=== PATIENT | male | born 1960 | race African-American/Black ===

== ENCOUNTER 2018-07-26 07:33 | Emergency (ER) | payer SELFPAY ==
[2018-07-26] MEDS ORDERED: NORMAL SALINE 1000 ML 1,000 ML IV ONE (07:50)
[2018-07-26] MEDS ORDERED: FAMOTIDINE INJ/PF 20 MG/2 ML SDV IV ONE (08:25)
--- NOTE | 2018-07-26 08:25 | ER Document Report ---
ED General - General Chief Complaint: Abdominal Pain Stated Complaint: ABDOMINAL PAIN Time Seen by Provider: 07/26/18 07:49 TRAVEL OUTSIDE OF THE [place] IN LAST 30 DAYS: No - HPI Onset: Last week Onset/Duration: Gradual, Constant Quality of pain: Burning, Sharp Severity: Moderate Associated symptoms: None Exacerbated by: Food Relieved by: Denies Similar symptoms previously: Yes - H pylori Notes: Patient is a 57-year-old male that presents to the emergency department for chief complaint of epigastric abdominal pain. Patient states his pain started last week. It is sharp and radiates across both sides of his upper abdomen. It is worse with food. He has tried Zantac which did give him some relief. He states he has been taking milk of magnesia and is having normal soft bowel movements. Patient has history of H pylori and states this feels similar but that was many years ago. He denies any vomiting or diarrhea. He denies any fevers or chills. He does drink alcohol occasionally but has not had any recently. Past Medical History: Hypertension Past Surgical History: Negative Social History: Daily tobacco. Occasional alcohol. Denies drug use Family History: Reviewed and noncontributory for presenting illness Allergies: Reviewed, see documented allergy list. REVIEW OF SYSTEMS: CONSTITUTIONAL : No fever No chills No diaphoresis No recent illness EENT: No vision changes No congestion No sore throat CARDIOVASCULAR: No chest pain No palpitations RESPIRATORY: No shortness of breath No cough No difficulty breathing GASTROINTESTINAL: abdominal pain No nausea No vomiting No diarrhea GENITOURINARY: No dysuria No hematuria No difficulty urinating MUSCULOSKELETAL: No back pain No leg pain No arm pain SKIN: No rashes No lesions LYMPHATIC: No swollen, enlarged glands. NEUROLOGICAL: No lightheadedness No headache No weakness No paresthesias PSYCHIATRIC: No anxiety No depression PHYSICAL EXAMINATION: Vital signs reviewed, nursing noted reviewed. GENERAL: Well-appearing, well-nourished and in no acute distress. HEAD: Atraumatic, normocephalic. EYES: Eyes appear normal, extraocular movements intact, sclera anicteric, conjunctiva are normal. ENT: nares patent, oropharynx clear without exudates. Moist mucous membranes. NECK: Normal range of motion, supple without lymphadenopathy LUNGS: Breath sounds clear to auscultation bilaterally and equal. No wheezes rales or rhonchi. HEART: Regular rate and rhythm without murmurs ABDOMEN: Soft, mild epigastric tenderness, normoactive bowel sounds. No rebound , guarding, or rigidity. No masses appreciated. EXTREMITIES: Nontender, good range of motion, no pitting or edema. NEUROLOGICAL: No focal neurological deficits. Moves all extremities spontaneously Motor and sensory grossly intact on exam. PSYCH: Normal mood, normal affect. SKIN: Warm, Dry, normal turgor, no rashes or lesions noted on exposed skin - Related Data Allergies/Adverse Reactions: No Known Allergies Allergy (Verified 07/26/18 07:34) Past Medical History - Social History Smoking Status: Current Every Day Smoker Family History: Reviewed & Not Pertinent - Past Medical History Cardiac Medical History: Reports: Hx Hypertension Review of Systems - Review of Systems Notes: Dictated Physical Exam - Vital signs Vitals: Temp Pulse Resp BP Pulse Ox 97.7 F 102 H 16 97/70 L 100 07/26/18 07:39 07/26/18 07:39 07/26/18 07:39 07/26/18 07:39 07/26/18 07:39 - Notes Notes: Dictated Course - Re-evaluation Re-evalutation: 07/26/18 08:24 Vitals reviewed. Nursing notes reviewed. Patient given IV hydration and Pepcid for symptomatic management. 07/26/18 10:05 Patient reevaluated and states he is feeling much better. His abdominal pain has almost completely resolved. His abdominal exam is benign with no peritoneal signs. He has no pancreatitis. Normal kidney and liver function. There is no electrolyte derangements and he appears well-hydrated. Patient will be started on omeprazole for symptomatic management. He was counseled on dietary changes. He will follow with his primary care doctor for reevaluation. He will return for new or worsening symptoms. Laboratory 07/26/18 07/26/18 08:10 08:10 WBC 10.1 RBC 4.86 Hgb 14.1 Hct 41.1 MCV 85 MCH 28.9 MCHC 34.2 RDW 13.5 Plt Count 472 H Total Counted 100 Seg Neutrophils % Not Reportable Seg Neuts % (Manual) 74 Lymphocytes % Not Reportable Lymphocytes % (Manual) 12 L Monocytes % Not Reportable Monocytes % (Manual) 6 Eosinophils % Not Reportable Eosinophils % (Manual) 6 Basophils % Not Reportable Basophils % (Manual) 2 Absolute Neutrophils Not Reportable Abs Neuts (Manual) 7.5 Absolute Lymphocytes Not Reportable Abs Lymphs (Manual) 1.2 Absolute Monocytes Not Reportable Abs Monocytes (Manual) 0.6 Absolute Eosinophils Not Reportable Absolute Eos (Manual) 0.6 Absolute Basophils Not Reportable Abs Basophils (Manual) 0.2 Toxic Granulation SLIGHT Platelet Comment ADEQUATE Polychromasia SLIGHT Sodium 143.9 Potassium 4.3 Chloride 103 Carbon Dioxide 29 Anion Gap 12 BUN 15 Creatinine 0.89 Est GFR ( Amer) > 60 Est GFR (Non-Af Amer) > 60 Glucose 92 Calcium 10.2 Total Bilirubin 0.8 Direct Bilirubin 0.2 Neonat Total Bilirubin Not Reportable Neonat Direct Bilirubin Not Reportable Neonat Indirect Bili Not Reportable AST 32 ALT 39 Alkaline Phosphatase 161 H Total Protein 7.2 Albumin 3.8 Lipase 22.1 L - Vital Signs Vital signs: Temp Pulse Resp BP Pulse Ox 97.7 F 102 H 16 97/70 L 100 07/26/18 07:39 07/26/18 07:39 07/26/18 07:39 07/26/18 07:39 07/26/18 07:39 - Laboratory Result Diagrams: 07/26/18 08:10 07/26/18 08:10 Laboratory results interpreted by me: 07/26/18 07/26/18 08:10 08:10 Plt Count 472 H Lymphocytes % (Manual) 12 L Alkaline Phosphatase 161 H Lipase 22.1 L Discharge - Discharge Clinical Impression: Epigastric abdominal pain Condition: Stable Disposition: HOME, SELF-CARE Instructions: Abdominal Pain ([facility]) Additional Instructions: Please return to the emergency department if you have any worsening, or concern of your symptoms. Please return to the emergency department if you develop chest pain, difficulty breathing, severe abdominal pain, or ongoing vomiting. Please follow-up with your primary care physician in 2-3 days and any other recommended physicians. If prescribed, take all medications as directed. If you have any questions or concerns do not hesitate to return the emergency department for evaluation. [] Prescriptions: Omeprazole 40 mg PO DAILY #30 capsule.
[2018-07-26 08:37] LABS: HEMATOCRIT 41.1 % (37.9-51.0); HEMOGLOBIN 14.1 g/dL (13.5-17.0); MEAN CORPUSCULAR HEMOGLOBIN 28.9 pg (27.0-33.4); MEAN CORPUSCULAR HGB CONC 34.2 g/dL (32.0-36.0); MEAN CORPUSCULAR VOLUME 85 fl (80-97); PLATELET COUNT 472 10^3/uL (150-450); RED BLOOD COUNT 4.86 10^6/uL (4.35-5.55); RED CELL DISTRIBUTION WIDTH 13.5 % (11.5-14.0); WHITE BLOOD COUNT 10.1 10^3/uL (4.0-10.5)
[2018-07-26 08:57] LABS: ALANINE AMINOTRANSFERASE 39 U/L (21-72); ALBUMIN 3.8 g/dL (3.5-5.0); ALKALINE PHOSPHATASE 161 U/L (38-126); ANION GAP 12 (5-19); ASPARTATE AMINO TRANSFERASE 32 U/L (17-59); BILIRUBIN,DIRECT 0.2 mg/dL (0.0-0.4); BILIRUBIN,TOTAL 0.8 mg/dL (0.2-1.3); BLOOD UREA NITROGEN 15 mg/dL (7-20); CALCIUM 10.2 mg/dL (8.4-10.2); CARBON DIOXIDE 29 mmol/L (22-30); CHLORIDE 103 mmol/L (98-107); GLUCOSE 92 mg/dL (75-110); LIPASE 22.1 U/L (23-300); POTASSIUM 4.3 mmol/L (3.6-5.0); SODIUM 143.9 mmol/L (137-145); TOTAL PROTEIN 7.2 g/dL (6.3-8.2)
[2018-07-26 09:12] LABS: ABSOLUTE LYMPHOCYTES# (MANUAL) 1.2 10^3/uL (0.5-4.7); ABSOLUTE MONOCYTES # (MANUAL) 0.6 10^3/uL (0.1-1.4); ABSOLUTE NEUTROPHILS# (MANUAL) 7.5 10^3/uL (1.7-8.2); BASOPHILS % (MANUAL) 2 % (0-2); EOSINOPHILS % (MANUAL) 6 % (0-6); LYMPHOCYTES % (MANUAL) 12 % (13-45); MONOCYTES % (MANUAL) 6 % (3-13); PLATELET COMMENT ADEQUATE; POLYCHROMASIA SLIGHT; SEGMENTED NEUTROPHILS % (MAN) 74 % (42-78); TOTAL CELLS COUNTED 100; TOXIC GRANULATION SLIGHT
[2018-07-26 10:30] VITALS: BP 145/92
== END 2018-07-26 10:32 | disposition home or self-care (01) ==
LOC: ER 07:33
DX: R10.13 Epigastric pain (principal); I10 Essential (primary) hypertension; F17.200 Nicotine dependence, unspecified, uncomplicated
CPT/HCPCS: 99284; 96361; 96374; 36415; 83690; 85025; 80053; J7030; S0028

== ENCOUNTER 2018-07-31 12:21 | Emergency (ER) | payer SELFPAY ==
[2018-07-31] MEDS ORDERED: NORMAL SALINE 1000 ML 1,000 ML IV ONE ×2 (12:50→16:40)
--- NOTE | 2018-07-31 13:06 | ER Document Report ---
ED Medical Screen (RME) - General Chief Complaint: Abdominal Pain >50 Stated Complaint: ABDOMINAL PAIN Time Seen by Provider: 07/31/18 12:45 Notes: 57-year-old male patient comes emergency room complaining of nausea and abdominal pain. He was seen here on 07/26/2018 and had essentially negative workup and was discharged with recommendations to take Prilosec 40 mg daily. He continues with same symptoms. Today he is found to have a blood pressure of 70/44. His radial pulses are barely palpable. 5 days ago his blood pressure was 145/92. We did confirm these pressures with automatic and manual cuff. He does report that he feels lightheaded if he stands up too quickly and this started probably the day after he was discharged on 07/26/2018. His conjunctiva does look a little pale as do his nailbeds. He was expeditiously moved to a room in the main ED for workup. I have greeted and performed a rapid initial assessment of this patient. A comprehensive ED assessment and evaluation of the patient, analysis of test results and completion of the medical decision making process will be conducted by additional ED providers. TRAVEL OUTSIDE OF THE [place] IN LAST 30 DAYS: No - Related Data Allergies/Adverse Reactions: No Known Allergies Allergy (Verified 07/31/18 12:30) Past Medical History - Past Medical History Cardiac Medical History: Reports: Hx Hypertension Renal/ Medical History: Denies: Hx Peritoneal Dialysis Physical Exam - Vital signs Vitals: Temp Pulse Resp BP Pulse Ox 98.5 F 107 H 16 70/44 L 100 07/31/18 12:36 07/31/18 12:36 07/31/18 12:36 07/31/18 12:36 07/31/18 12:36 Course - Vital Signs Vital signs: Temp Pulse Resp BP Pulse Ox 98.5 F 107 H 16 70/44 L 100 07/31/18 12:36 07/31/18 12:36 07/31/18 12:36 07/31/18 12:36 07/31/18 12:36
[2018-07-31 13:34] LABS: ABSOLUTE BASOPHILS # (AUTO) 0.1 10^3/uL (0.0-0.2); ABSOLUTE EOSINOPHILS # (AUTO) 0.3 10^3/uL (0.0-0.6); ABSOLUTE LYMPHOCYTES (AUTO) 1.5 10^3/uL (0.5-4.7); ABSOLUTE MONOCYTES (AUTO) 0.9 10^3/uL (0.1-1.4); ABSOLUTE NEUT (AUTO) 9.3 10^3/uL (1.7-8.2); BASOPHILS % (AUTO) 0.9 % (0-2); EOSINOPHILS % (AUTO) 2.8 % (0-6); HEMATOCRIT 40.5 % (37.9-51.0); HEMOGLOBIN 13.7 g/dL (13.5-17.0); LYMPHOCYTES % (AUTO) 12.4 % (13-45); MEAN CORPUSCULAR HEMOGLOBIN 28.3 pg (27.0-33.4); MEAN CORPUSCULAR HGB CONC 33.9 g/dL (32.0-36.0); MEAN CORPUSCULAR VOLUME 83 fl (80-97); MONOCYTES % (AUTO) 7.7 % (3-13); PLATELET COUNT 440 10^3/uL (150-450); RED BLOOD COUNT 4.85 10^6/uL (4.35-5.55); RED CELL DISTRIBUTION WIDTH 12.7 % (11.5-14.0); SEGMENTED NEUTROPHILS % (AUTO) 76.2 % (42-78); TOTAL CELLS COUNTED % (AUTO) 100 %; WHITE BLOOD COUNT 12.2 10^3/uL (4.0-10.5)
[2018-07-31] MEDS ORDERED: DICYCLOMINE HCL INJ 20 MG/2 ML AMPULE IM STA (13:50)
[2018-07-31] MEDS ORDERED: PANTOPRAZOLE SODIUM 40 MG VIAL IV ONE (13:52)
[2018-07-31 13:56] LABS: ALANINE AMINOTRANSFERASE 29 U/L (21-72); ALKALINE PHOSPHATASE 148 U/L (38-126); ANION GAP 15 (5-19); ASPARTATE AMINO TRANSFERASE 33 U/L (17-59); BILIRUBIN,DIRECT 0.4 mg/dL (0.0-0.4); BILIRUBIN,TOTAL 0.8 mg/dL (0.2-1.3); BLOOD UREA NITROGEN 19 mg/dL (7-20); CARBON DIOXIDE 25 mmol/L (22-30); CHLORIDE 101 mmol/L (98-107); GLUCOSE 96 mg/dL (75-110); LIPASE 20.2 U/L (23-300); POTASSIUM 4.6 mmol/L (3.6-5.0); SODIUM 140.8 mmol/L (137-145); TOTAL PROTEIN 7.2 g/dL (6.3-8.2)
[2018-07-31 15:30] LABS: APPEARANCE,URINE SLIGHTLY-CLOUDY; BILIRUBIN,URINE NEGATIVE (NEGATIVE); COLOR,URINE YELLOW; GLUCOSE, URINE NEGATIVE (NEGATIVE); KETONES,URINE 20 mg/dL (NEGATIVE); LEUKOCYTE ESTERASE,URINE NEGATIVE (NEGATIVE); NITRITE,URINE NEGATIVE (NEGATIVE); PROTEIN,URINE NEGATIVE (NEGATIVE); URINE SPECIFIC GRAVITY 1.025
--- NOTE | 2018-07-31 16:41 | RADIOLOGY REPORT (SQ) ---
EXAM DESCRIPTION: ACUTE ABDOMEN SERIES COMPLETED DATE/TIME: 07/31/2018 4:29 pm REASON FOR STUDY: abdominal pain COMPARISON: None. NUMBER OF VIEWS: Three views. TECHNIQUE: Frontal chest, supine abdomen and upright/decubitus abdomen radiographic images acquired. LIMITATIONS: None. FINDINGS: CHEST: Lungs clear of infiltrates. FREE AIR: None. No abnormal gas collections. BOWEL GAS PATTERN: Nonobstructive pattern. No dilated loops. A few small air-fluid levels on the upr ight image. Two ingested pills in the bowel in the left lower quadrant of the abdomen. CALCIFICATIONS: No suspicious calcifications. HARDWARE: None in the abdomen. SOFT TISSUES: No gross mass or suggestion of organomegaly. BONES: No acute fracture. No worrisome bone lesions. OTHER: No other significant finding. IMPRESSION: 1. No acute pulmonary findings. 2. A few nonspecific air-fluid levels on the upright image, may be on the basis of gastroenteritis, early ileus. TECHNICAL DOCUMENTATION: JOB ID: [id number] [employer]- All Rights Reserved Reading location - IP/workstation name: [email or web address]
--- NOTE | 2018-07-31 17:02 | ER Document Report ---
ED GI/ <MARBELLADOREENSHANAE - Last Filed: 08/01/18 04:57> - General Mode of Arrival: Ambulatory Information source: Patient TRAVEL OUTSIDE OF THE [place] IN LAST 30 DAYS: No - HPI Patient complains to provider of: Abdominal pain Onset: Last week Timing/Duration: Gradual, Persistent, Worse Quality of pain: Cramping, Pressure, Throbbing Severity at maximum: Moderate Severity in ED: Moderate Pain Level: 3 Associated symptoms: Dizzy, Lightheaded, Nausea Exacerbated by: Supine, Standing Similar symptoms previously: Yes Recently seen / treated by doctor: Yes <BENITEZ COOPER - Last Filed: 08/07/18 08:55> - General Stated Complaint: ABDOMINAL PAIN Time Seen by Provider: 07/31/18 12:45 Notes: Patient is a 57-year-old male who comes emergency room for the second time since the seventh of the month with a complaint of abdominal pain. While he was out in triage it was noted that his blood pressure had dropped to 70/44 with a heart rate of 107. Patient was rushed to the back and put on the gurney and blood pressure cuff inflated any was 149/89. Further investigation shows that patient was seen on the all of his labs were normal so no radiologic studies were done. He had been complaining of constipation and a history of H. pylori and they put him on some omeprazole and he comes back to the ER complaining that is still not any better. Patient does state that he has always been a little dizzy when he goes to stand up. He currently is only being treated for hypertension with lisinopril. He is taking no other medications. 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 Lives with: Family Family History: Reviewed & Not Pertinent Patient has suicidal ideation: No Patient has homicidal ideation: No - Past Medical History Cardiac Medical History: Reports: Hx Hypertension Renal/ Medical History: Denies: Hx Peritoneal Dialysis <BENITEZ COOPER - Last Filed: 08/07/18 08:55> Review of Systems - Review of Systems Constitutional: Weakness EENT: No symptoms reported Cardiovascular: Lightheaded Respiratory: No symptoms reported Gastrointestinal: Abdomen distended, Abdominal pain Genitourinary: No symptoms reported Male Genitourinary: No symptoms reported Musculoskeletal: No symptoms reported Skin: No symptoms reported Hematologic/Lymphatic: No symptoms reported Neurological/Psychological: No symptoms reported -: Yes All other systems reviewed and negative <EDUBENITEZ Thurman - Last Filed: 08/07/18 08:55> Physical Exam <MARBELLADOREENSHANAE - Last Filed: 08/01/18 04:57> - Vital signs Interpretation: Hypotensive, Tachycardic <BENITEZ COOPER - Last Filed: 08/07/18 08:55> - Vital signs Vitals: Temp Pulse Resp BP Pulse Ox 98.5 F 107 H 16 70/44 L 100 07/31/18 12:36 07/31/18 12:36 07/31/18 12:36 07/31/18 12:36 07/31/18 12:36 - Notes Notes: PHYSICAL EXAMINATION: GENERAL: Patient is a 57-year-old male who is slightly anorexic appearance for age and height. He is a mail 510 weighs 60 kg. He is in no acute distress at this time. HEAD: Atraumatic, normocephalic. EYES: Pupils equal round and reactive to light, extraocular movements intact, sclera anicteric, conjunctiva are normal. ENT: Nares patent, oropharynx clear without exudates. Moist mucous membranes. NECK: Normal range of motion, supple without lymphadenopathy LUNGS: Breath sounds clear to auscultation bilaterally and equal. No wheezes rales or rhonchi. 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 There is no bulging there is no incarceration no strangulation. Patient has diffuse discomfort on palpation and percussion but no specific point tenderness. Patient does not exhibit a lot of peritoneal sign. But he is showing a large amount of discomfort on palpation. Patient displays no flank pain to percussion. He has no suprapubic tenderness. Denies any discharge from male genitalia. Musculoskeletal: Normal range of motion, no pitting or edema. No cyanosis. NEUROLOGIC Normal speech, normal gait. Normal sensory, motor exams PSYCH: Normal mood, normal affect. SKIN: Warm, Dry, normal turgor, no rashes or lesions noted. (BENITEZ COOPER) Course - Laboratory Result Diagrams: 07/31/18 13:13 07/31/18 13:13 <SHANAE ROSA - Last Filed: 08/01/18 04:57> - Laboratory Result Diagrams: 07/31/18 13:13 07/31/18 13:13 <BENITEZ COOPER - Last Filed: 08/07/18 08:55> - Re-evaluation Re-evalutation: 07/31/18 20:50 Radiologist called, reports SMV clot, no acute finding otherwise. I discussed with patient in detail. Recommendation was to start patient on heparin drip for SMV clot, admit for care. Potential transfer for vascular coverage. Patient refused. Patient requests dose of blood thinner and discharged home. I explained to patient that SMV clot could result in severe problems including lack of blood supply to the bowels, bowel necrosis, sepsis, . I explained that I do not know the source of his clot to this point and he could have additional clots which could also be life-threatening. Patient states that he understands this, however he states that he just wants a dose of blood thinner and he needs to go home, he refuses to tell me why he needs to go home. Patient has family waiting outside and he refuses to let me tell them about his diagnosis. He states that he wants to tell them himself, he states that he understands that he could have severe, bradycardia or even , he states that he still wants to be discharged. Patient is alert, conversational, appears to have good capacity for making decision, but I repeatedly advised against leaving. Patient states he would like to sign out AGAINST MEDICAL ADVICE. I discussed with Dr. Haro, she spoke to the patient as well and patient still refuses to stay. Given dose of Lovenox, patient signed out AGAINST MEDICAL ADVICE. (SHANAE ROSA) 07/31/18 17:03 Patient stated ER has been interesting. His blood pressure is bottomed out on him and his orthostatics have been positive for 2 rounds of 1000 mL's of fluid. At 1:30 PM this this afternoon patient had not received any fluids yet and his orthostatics were as follows supine 165/104 with a heart rate of 92 sitting blood pressure 119/96 with a heart rate 100 and standing up blood pressure 64/ 43 with a heart rate of 114 after 1 L of fluids patient's blood pressure laying down after patient received his first liter of fluids which was around 1601 his laying down blood pressure was 156/104 his heart rate was 72. Sitting up his blood pressure 141/109 and his heart rate was 86 and standing up his blood pressure was 83/62 with a heart rate of 86. So we had some gain with the blood pressure however patient's discomfort in his abdominal area though nonspecific was still concerning with an elevation in his white count up to 12. I discussed with patient the options of a CT and informed him that this is something that we probably need to do because he is not getting any better and with the pressures like they are want to make sure nothing is going on here read. So we are doing a CT of the abdomen and pelvis with IV contrast. Patient is such a skinny frail appearing male he is 510 and use at 60 kg I do not feel comfortable and hitting with 1/3 L of fluids when he is kidney functions do not appear to be dehydrated his oral mucosa was moist something in her may be something else going along with this. 07/31/18 17:06 07/31/18 19:13 Edu physician certified surgical tech/first assistant it is now 1912 I have just gone into the room with Mr. Mena and taken Mini and I have been the nighttime providers and introduced him to them. I have explained to them that we are waiting on the CT and will and we have gone through and studied his blood pressures and his orthostatics and they were given to take over and see where this will lead. Go to be leaving them waiting on the CT of the abdomen and pelvis with IV and oral contrast and results of that may determine where the patient stays or goes. ( BENITEZ COOPER) - Vital Signs Vital signs: Temp Pulse Resp BP Pulse Ox 98.1 F 78 15 141/90 H 99 07/31/18 21:22 07/31/18 21:22 07/31/18 21:22 07/31/18 21:22 07/31/18 21:22 - Laboratory Laboratory results interpreted by me: 07/31/18 07/31/18 07/31/18 13:13 13:13 15:06 WBC 12.2 H Lymphocytes % 12.4 L Absolute Neutrophils 9.3 H Alkaline Phosphatase 148 H Lipase 20.2 L Urine Ketones 20 H Urine Urobilinogen 2.0 H Discharge <SHANAE ROSA - Last Filed: 08/01/18 04:57> <BENITEZ COOPER - Last Filed: 08/07/18 08:55> - Discharge Clinical Impression: Mesenteric vein thrombosis Abdominal pain Qualifiers: Abdominal location: generalized Qualified Code(s): R10.84 - Generalized abdominal pain Disposition: AGAINST MEDICAL ADVICE Additional Instructions: You have been diagnosed with a blood clot in the a blood vessel in your abdomen. You are signing out AGAINST MEDICAL ADVICE. You have been informed that this is a life-threatening condition that could cause bowel, lead to bowel surgery, lead to . You have been given a dose of blood thinner and prescribed a blood thinner as well, however I strongly recommend that you immediately seek additional management in the hospital because of your critical condition. Prescriptions: Rivaroxaban [Xarelto 15 mg Tablet] 15 mg PO BID #42 tablet Referrals: ELIECER ESTRADA MD [Primary Care Provider] - Follow up as needed
--- NOTE | 2018-07-31 20:12 | EKG REPORT ---
SEVERITY:- BORDERLINE ECG - SINUS RHYTHM PROBABLE LEFT ATRIAL ABNORMALITY BORDERLINE T ABNORMALITIES, ANT-LAT LEADS : Confirmed by: Mitzi Jaramillo 31-Jul-2018 20:11:27
--- NOTE | 2018-07-31 20:41 | RADIOLOGY REPORT (SQ) ---
EXAM DESCRIPTION: CT ABD/PELVIS WITH IV ORAL COMPLETED DATE/TIME: 07/31/2018 7:59 pm REASON FOR STUDY: Abdominal pain COMPARISON: None. TECHNIQUE: CT scan of the abdomen and pelvis performed using helical scanning technique with dynamic intravenous contrast injection. No oral contrast. Images reviewed with lung, soft tissue, and bone windows. Reconstructed coronal and sagittal MPR images reviewed. Delayed images for evaluation of the urinary system also acquired. All images stored on PACS. All CT scanners at this facility use dose modulation, iterative reconstruction, and/or weight based d osing when appropriate to reduce radiation dose to as low as reasonably achievable (ALARA). [facility]: Dose Right [facility]: CareDose [facility]: Dose Right [facility]: Teradose 4D [facility]: [employer] CONTRAST TYPE AND DOSE: contrast/concentration: Isovue 350.00 mg/ml; Total Contrast Delivered: 67.0 ml; Total Saline Delivered: 65.0 ml RENAL FUNCTION: BUN 19 creatinine 0.8 RADIATION DOSE: CT Rad equipment meets quality standard of care and radiation dose reduction techniq ues were employed. CTDIvol: 4.9 - 5.4 mGy. DLP: 513 mGy-cm.. LIMITATIONS: None. FINDINGS: LOWER CHEST: No significant findings. No nodules or infiltrates. LIVER: There are broad areas of decreased attenuation in the liver with areas of normal attenuation. There are numerous fairly well-circumscribed low-density lesions in the liver SPLEEN: Normal size. No focal lesions. PANCREAS: No masses. No significant calcifications. No adjacent inflammation or peripancreatic fluid collections. Pancreatic duct not dilated. GALLBLADDER: No identified stones by CT criteria. No inflammatory changes to suggest cholecystitis. ADRENAL GLANDS: No significant masses or asymmetry. RIGHT KIDNEY AND URETER: No solid masses. No significant calcifications. No hydronephrosis or hyd roureter. LEFT KIDNEY AND URETER: No solid masses. No significant calcifications. No hydronephrosis or hydr oureter. AORTA AND VESSELS: The aorta is patent and there is no aneurysm or dissection. There appears to be t hrombosis of the superior mesenteric vein. Considerable mesenteric edema is present. RETROPERITONEUM: No retroperitoneal adenopathy, hemorrhage or masses. BOWEL AND PERITONEAL CAVITY: There is contrast in the right colon that extends to the proximal and mi d descending colon. APPENDIX: Not identified. PELVIS: No mass. No free fluid. Normal bladder. ABDOMINAL WALL: No masses. No hernias. BONES: No significant or acute findings. OTHER: No other significant finding. IMPRESSION: 1. Focal fatty infiltration of the liver with areas of focal sparing. Numerous fairly well-circumscribed low-density lesions may represent cysts. Consider ultrasound. 2. There appears to be mesenteric vein thrombosis. COMMENT: Pertinent findings on the imaging study reported as a CRITICAL RESULT to SHANAE ROSA at20 :34 on 07/31/2018. TECHNICAL DOCUMENTATION: JOB ID: [id number] Quality ID # [id number]: Final reports with documentation of one or more dose reduction techniques (e.g., Au tomated exposure control, adjustment of the mA and/or kV according to patient size, use of iterative reconstruction technique) 2010 [employer]- All Rights Reserved Reading location - IP/workstation name: [email or web address]
[2018-07-31] MEDS ORDERED: ENOXAPARIN SODIUM INJ 60 MG/0.6 ML DISP.SYRIN SUBCUT ONE (20:54)
[2018-07-31 21:23] VITALS: BP 141/90
--- NOTE | 2018-08-01 10:02 | EKG REPORT ---
SEVERITY:- NORMAL ECG - SINUS RHYTHM : Confirmed by: Mitzi Jaramillo 01-Aug-2018 10:00:11
== END 2018-07-31 21:25 | disposition left against medical advice (07) ==
LOC: ER 12:21
DX: I81 Portal vein thrombosis (principal); R10.84 Generalized abdominal pain; R11.0 Nausea; I10 Essential (primary) hypertension; F17.210 Nicotine dependence, cigarettes, uncomplicated
CPT/HCPCS: 93005; 99285; 96372; 96361; 96374; 86900; 86901; 36415; 86850; 83690; 85025; 80053; 81001; 74022; 74177; 93010; J0500; S0164; J7030; J1650

== ENCOUNTER 2018-08-20 15:29 | Emergency (ER) | payer SELFPAY ==
[2018-08-20] MEDS ORDERED: RINGERS SOLUTION,LACTATED 1,000 ML IV ONE ×2 (16:01→18:25)
--- NOTE | 2018-08-20 16:13 | ER Document Report ---
ED Medical Screen (RME) - General Chief Complaint: Abdominal Pain Stated Complaint: STOMACH PAIN Time Seen by Provider: 08/20/18 15:55 Notes: Patient is a 57-year-old male with recent diagnosis of mesenteric venous thrombosis that presents to the emergency department for chief complaint of abdominal pain, decreased appetite. Patient states he has been on Xarelto, has missed a few doses, and started having abdominal pain again, describes it as diffuse, denies noting any blood or melanotic stools. He is still taking his blood pressure medication is on lisinopril. ROS: Other than noted above, the 12 point review of systems was reviewed with the patient and were negative, all pertinent findings are included in the HPI. PHYSICAL EXAMINATION: Vital signs reviewed. GENERAL: Frail-appearing male, but in no acute distress HEAD: Atraumatic, normocephalic. EYES: Pupils equal round extraocular movements intact, conjunctiva are normal. ENT: Nares patent NECK: Normal range of motion CV: Heart rate tachycardic, regular rhythm LUNGS: No respiratory distress Musculoskeletal: Normal range of motion NEUROLOGICAL: Normal speech PSYCH: Normal mood, normal affect. MDM: Patient seen and examined for rapid initial assessment. Vital signs reviewed. A comprehensive ED assessment and evaluation of the patient, analysis of test results and completion of the medical decision making process will be conducted by additional ED providers. *Note is created using voice recognition software and may contain spelling, syntax or grammatical errors. TRAVEL OUTSIDE OF THE [place] IN LAST 30 DAYS: No - Related Data Allergies/Adverse Reactions: No Known Allergies Allergy (Verified 07/31/18 12:30) Past Medical History - Social History Chew tobacco use (# tins/day): No Frequency of alcohol use: None Drug Abuse: None - Past Medical History Cardiac Medical History: Reports: Hx Hypertension Renal/ Medical History: Denies: Hx Peritoneal Dialysis Physical Exam - Vital signs Vitals: Temp Pulse Resp BP Pulse Ox 98.1 F 117 H 15 81/65 L 100 08/20/18 15:44 08/20/18 15:44 08/20/18 15:44 08/20/18 15:44 08/20/18 15:44 Course - Vital Signs Vital signs: Temp Pulse Resp BP Pulse Ox 98.1 F 117 H 15 81/65 L 100 08/20/18 15:44 08/20/18 15:44 08/20/18 15:44 08/20/18 15:44 08/20/18 15:44
[2018-08-20 16:41] LABS: HEMATOCRIT 38.2 % (37.9-51.0); MEAN CORPUSCULAR HEMOGLOBIN 28.5 pg (27.0-33.4); MEAN CORPUSCULAR HGB CONC 34.1 g/dL (32.0-36.0); MEAN CORPUSCULAR VOLUME 84 fl (80-97); RED BLOOD COUNT 4.58 10^6/uL (4.35-5.55); RED CELL DISTRIBUTION WIDTH 13.8 % (11.5-14.0)
--- NOTE | 2018-08-20 16:43 | ER Document Report ---
ED General - General Mode of Arrival: Ambulatory Information source: Patient TRAVEL OUTSIDE OF THE [place] IN LAST 30 DAYS: No <TONO SPEAR - Last Filed: 08/20/18 16:59> <BYRON MTZ - Last Filed: 08/21/18 19:03> <AKILESAU ANN - Last Filed: 08/21/18 23:37> - General Chief Complaint: Abdominal Pain Stated Complaint: STOMACH PAIN Time Seen by Provider: 08/20/18 15:55 Notes: 57-year-old male who presents to the emergency department today with complaints of global weakness with associated lightheadedness, dizziness, and a loss of appetite. Patient was recently diagnosed with a mesenteric venous thrombosis and is on Xarelto. Patient has missed some doses of Xarelto stating that he is supposed to take it on a full stomach and becuase he has not been eating he has not been taking it daily. Patient states he has an appointment with Dr. Kearns tomorrow. Patient denies any vomiting, cough, or fevers. Of note, the patient is hiccupping throughout the exam which he states has been intermittent for the last few days. (TONO SPEAR) - Related Data Allergies/Adverse Reactions: No Known Allergies Allergy (Verified 07/31/18 12:30) Past Medical History - General Information source: Patient - Social History Smoking Status: Former Smoker Cigarette use (# per day): No Chew tobacco use (# tins/day): No Frequency of alcohol use: None Drug Abuse: None Lives with: Family Family History: Reviewed & Not Pertinent Patient has suicidal ideation: No Patient has homicidal ideation: No - Past Medical History Cardiac Medical History: Reports: Hx Hypertension <TONO SPEAR - Last Filed: 08/20/18 16:59> Review of Systems - Review of Systems Constitutional: See HPI, Weakness - global, Other - Hiccups. Loss of appetite.. denies: Fever EENT: No symptoms reported Cardiovascular: See HPI, Dizziness, Lightheaded Respiratory: denies: Cough Gastrointestinal: denies: Vomiting Genitourinary: No symptoms reported Male Genitourinary: No symptoms reported Musculoskeletal: No symptoms reported Skin: No symptoms reported Hematologic/Lymphatic: No symptoms reported Neurological/Psychological: No symptoms reported -: Yes All other systems reviewed and negative <TONO SPEAR - Last Filed: 08/20/18 16:59> Physical Exam - Vital signs Interpretation: Hypotensive, Tachycardic - General General appearance: Other - chronically ill appearing In distress: Moderate - HEENT Head: Normocephalic, Atraumatic Mucous membranes: Dry - Respiratory Respiratory status: No respiratory distress - Cardiovascular Rhythm: Regular - Abdominal Distension: Distended Tenderness: Other - Mild diffuse TTP - Extremities General upper extremity: Normal inspection, Normal ROM General lower extremity: Normal inspection, Normal ROM - Skin Skin Temperature: Warm Skin Moisture: Dry <ESAU BARNARD - Last Filed: 08/21/18 23:37> - Vital signs Vitals: Temp Pulse Resp BP Pulse Ox 98.1 F 117 H 15 81/65 L 100 08/20/18 15:44 08/20/18 15:44 08/20/18 15:44 08/20/18 15:44 08/20/18 15:44 Course - Laboratory Result Diagrams: 08/20/18 16:10 08/20/18 16:10 <TONO SPEAR - Last Filed: 08/20/18 16:59> - Laboratory Result Diagrams: 08/20/18 16:10 08/20/18 16:10 <BYRON MTZ - Last Filed: 08/21/18 19:03> - Laboratory Result Diagrams: 08/20/18 16:10 08/20/18 16:10 - Diagnostic Test Radiology reviewed: Reports reviewed - EKG Interpretation by Me Rate: Tachycardia <ESAU BARNARD - Last Filed: 08/21/18 23:37> - Re-evaluation Re-evalutation: Error documentation on the procedure. No procedure performed on this patient. Unable to remove "head-laceration" etc in the system. (BYRON MTZ) Patient is a 57 male who comes in with tachycardia and hypotension. Patient has a history of venous thrombosis and has not been able to take his blood thinner because he is not felt like eating or drinking anything and is not been able to keep anything down. Today again, patient has a venous thrombus thrombosis that appears worse. He also has fluid in his pelvis and worsening liver masses. Patient has been fluid resuscitated. He is adamant that he is not staying. He will not let me discuss his diagnosis with his sisters who are here in the emergency department. I had multiple conversations with him with nursing staff present while keeping him in the hospital and that he will likely have a poor prognosis if he goes home. I have discussed him with Dr. Kearns from oncology who agrees that the patient to stay in the hospital. Patient is insistent that he will go home and he is going to go see oncology tomorrow. Patient has been given cefepime for urine, fluids, and Arixtra 2 try to help his thrombosis. Again, I have had multiple conversations with this patient and discussed that if he goes home he may from a blood clot, infection, respiratory or cardiac arrest. Patient understands and still wants to go home. He will be signing out AGAINST MEDICAL ADVICE. (ESAU BARNARD) - Vital Signs Vital signs: Temp Pulse Resp BP Pulse Ox 98.1 F 88 18 132/92 H 99 08/20/18 20:19 08/20/18 20:19 08/20/18 20:19 08/20/18 20:19 08/20/18 20:19 - Laboratory Laboratory results interpreted by me: 08/20/18 08/20/18 08/20/18 16:10 16:10 16:10 WBC 20.0 H Hgb 13.0 L Seg Neuts % (Manual) 80 H Lymphocytes % (Manual) 11 L Abs Neuts (Manual) 16.0 H PT 16.7 H APTT 37.2 H BUN 33 H AST 92 H ALT 75 H Alkaline Phosphatase 231 H Albumin 3.2 L Urine Urobilinogen 08/20/18 17:44 WBC Hgb Seg Neuts % (Manual) Lymphocytes % (Manual) Abs Neuts (Manual) PT APTT BUN AST ALT Alkaline Phosphatase Albumin Urine Urobilinogen 4.0 H Critical Care Note - Critical Care Note Total time excluding time spent on procedures (mins): 60 - Evaluation and management of tachycardia, hypotension, thrombus, consultation with specialist, re-evaluations of patient, multiple conversations with patient and family <ESAU BARNARD - Last Filed: 08/21/18 23:37> Discharge <TONO SPEAR - Last Filed: 08/20/18 16:59> <BYRON MTZ - Last Filed: 08/21/18 19:03> <ESAU BARNARD - Last Filed: 08/21/18 23:37> - Discharge Clinical Impression: Mesenteric venous thrombosis, Dehydration, Liver mass Sepsis Qualifiers: Sepsis type: sepsis due to unspecified organism Qualified Code(s): A41.9 - Sepsis, unspecified organism Condition: Poor Disposition: AGAINST MEDICAL ADVICE Instructions: Abdominal Pain ([facility]), Growth or Mass, Pending Workup ([facility]), Urinary Tract Infection ([facility]) Additional Instructions: You have chosen to leave AGAINST MEDICAL ADVICE. Please follow-up with oncology tomorrow. Please take your blood thinner as you are instructed to do. Please return at any time for any further concerns or symptoms. Scribe Attestation: 08/21/18 00:32 I personally performed the services described in the documentation, reviewed and edited the documentation which was dictated to the scribe in my presence, and it accurately records my words and actions. (ESAU BARNARD) Scribe Documentation - Scribe Written by Anithae:: Stephanie Garcia, 08/20/2018 1702 acting as scribe for :: Akil <TONO SPEAR - Last Filed: 08/20/18 16:59>
[2018-08-20 16:48] LABS: INTERNATIONAL RATION (INR) 1.29; PROTHROMBIN TIME 16.7 SEC (11.4-15.4)
[2018-08-20 16:49] LABS: PARTIAL THROMBOPLASTIN TIME 37.2 SEC (23.5-35.8)
[2018-08-20] MEDS ORDERED: CHLORPROMAZINE HCL INJ 25 MG/1 ML AMPULE IV ONE (16:52)
[2018-08-20 16:55] LABS: ALANINE AMINOTRANSFERASE 75 U/L (21-72); ALBUMIN 3.2 g/dL (3.5-5.0); ALKALINE PHOSPHATASE 231 U/L (38-126); ANION GAP 12 (5-19); ASPARTATE AMINO TRANSFERASE 92 U/L (17-59); BILIRUBIN,DIRECT 0.3 mg/dL (0.0-0.4); BLOOD UREA NITROGEN 33 mg/dL (7-20); CALCIUM 10.2 mg/dL (8.4-10.2); CARBON DIOXIDE 28 mmol/L (22-30); CHLORIDE 99 mmol/L (98-107); GLUCOSE 97 mg/dL (75-110); LIPASE 35.3 U/L (23-300); POTASSIUM 4.6 mmol/L (3.6-5.0); TOTAL PROTEIN 6.7 g/dL (6.3-8.2)
[2018-08-20 17:05] LABS: ABSOLUTE LYMPHOCYTES# (MANUAL) 2.8 10^3/uL (0.5-4.7); ABSOLUTE MONOCYTES # (MANUAL) 0.8 10^3/uL (0.1-1.4); BASOPHILS % (MANUAL) 0 % (0-2); EOSINOPHILS % (MANUAL) 2 % (0-6); LYMPHOCYTES % (MANUAL) 11 % (13-45); MONOCYTES % (MANUAL) 4 % (3-13); SEGMENTED NEUTROPHILS % (MAN) 80 % (42-78); TOTAL CELLS COUNTED 100
[2018-08-20 17:07] LABS: PLATELET CLUMPS PRESENT; PLATELET COUNT 400 10^3/uL (150-450); POIKILOCYTOSIS SLIGHT; POLYCHROMASIA SLIGHT; SCHISTOCYTES SLIGHT; TEAR DROP CELLS SLIGHT; TOXIC GRANULATION 1+
[2018-08-20 17:08] LABS: PLATELET COMMENT ADEQUATE
--- NOTE | 2018-08-20 18:02 | RADIOLOGY REPORT (SQ) ---
EXAM DESCRIPTION: CT ABD/PELVIS WITH IV ONLY COMPLETED DATE/TIME: 08/20/2018 5:43 pm REASON FOR STUDY: abdominal pain, hx mesenteric venous thrombosis COMPARISON: 08/10/2018 TECHNIQUE: CT scan of the abdomen and pelvis performed using helical scanning technique with dynamic intravenous contrast injection. No oral contrast. Images reviewed with lung, soft tissue, and bone windows. Reconstructed coronal and sagittal MPR images reviewed. Delayed images for evaluation of the urinary system also acquired. All images stored on PACS. All CT scanners at this facility use dose modulation, iterative reconstruction, and/or weight based d osing when appropriate to reduce radiation dose to as low as reasonably achievable (ALARA). [facility]: Dose Right [facility]: CareDose [facility]: Dose Right [facility]: Teradose 4D [facility]: ffk environment CONTRAST TYPE AND DOSE: contrast/concentration: Isovue 350.00 mg/ml; Total Contrast Delivered: 62.0 ml; Total Saline Delivered: 65.0 ml 62 mL IV of Omnipaque 350- low osmolar. RENAL FUNCTION: BUN 33 creatinine 0.84 RADIATION DOSE: CT Rad equipment meets quality standard of care and radiation dose reduction techniq ues were employed. CTDIvol: 4.8 - 5.1 mGy. DLP: 551 mGy-cm.. LIMITATIONS: None. FINDINGS: LOWER CHEST: No significant findings. No nodules or infiltrates. LIVER: Interval increase in size and number of multiple hypoattenuating lesions scattered throughout the liver. Unchanged ill-defined hypoattenuation of the central liver which is likely secondary to a lterations in profusion. SPLEEN: Normal size. No focal lesions. PANCREAS: No masses. No significant calcifications. No adjacent inflammation or peripancreatic fluid collections. Pancreatic duct not dilated. GALLBLADDER: No identified stones by CT criteria. No inflammatory changes to suggest cholecystitis. ADRENAL GLANDS: No significant masses or asymmetry. RIGHT KIDNEY AND URETER: No solid masses. No significant calcifications. No hydronephrosis or hyd roureter. LEFT KIDNEY AND URETER: No solid masses. No significant calcifications. No hydronephrosis or hydr oureter. AORTA AND VESSELS: No aneurysm. No dissection. Mild calcified and noncalcified plaque of the aortoil iac system. Again, thrombus within the superior mesenteric vein. Portal vein is not opacified. Unc lear if this due to timing of contrast or due to extension of thrombus. RETROPERITONEUM: No retroperitoneal adenopathy, hemorrhage or masses. BOWEL AND PERITONEAL CAVITY: No dilated loops of bowel. Hypoenhancement of the holguin of the small vickie wel and colon. Moderate amount of free fluid within the abdomen and pelvis. No intraperitoneal free air. APPENDIX: Not visualized. PELVIS: No mass. Normal bladder. ABDOMINAL WALL: No masses. No hernias. BONES: No significant or acute findings. OTHER: No other significant finding. IMPRESSION: 1. Hypoenhancement of the large and small bowel. Given the additional finding of thrombus in the sup erior mesenteric vein, findings are concerning for mesenteric ischemia. Surgical consultation recomm ended. 2. Interval development of moderate ascites. 3. Non opacification of the portal vein which may be due to timing of contrast or extension of the SM V thrombus. 4. Increased in number and size of the hepatic masses. COMMENT: This report was called to CHRISTINA GONGORA DO at17:51 on 08/20/2018. TECHNICAL DOCUMENTATION: JOB ID: [id number] Quality ID # [id number]: Final reports with documentation of one or more dose reduction techniques (e.g., Au tomated exposure control, adjustment of the mA and/or kV according to patient size, use of iterative reconstruction technique) 2010 [employer]- All Rights Reserved Reading location - IP/workstation name: [email or web address]
[2018-08-20] MEDS ORDERED: FONDAPARINUX SODIUM INJ 7.5 MG/0.6 ML DISP.SYRIN SUBCUT ONE ×2 (18:43→19:36)
[2018-08-20] MEDS ORDERED: ONDANSETRON HCL INJ/PF 4 MG/2 ML SDV IV ONE (18:45)
[2018-08-20 18:50] LABS: APPEARANCE,URINE SLIGHTLY-CLOUDY; BILIRUBIN,URINE NEGATIVE (NEGATIVE); COLOR,URINE AMBER; GLUCOSE, URINE NEGATIVE (NEGATIVE); KETONES,URINE NEGATIVE (NEGATIVE); LEUKOCYTE ESTERASE,URINE NEGATIVE (NEGATIVE); NITRITE,URINE NEGATIVE (NEGATIVE); PROTEIN,URINE NEGATIVE (NEGATIVE); URINE SPECIFIC GRAVITY 1.048
[2018-08-20] MEDS ORDERED: CEFEPIME 1 GM/D5W RTU 1 GM/50 ML RTUPB IV ONE (19:06)
[2018-08-20 20:20] VITALS: BP 132/92
--- NOTE | 2018-08-20 20:59 | EKG REPORT ---
SEVERITY:- OTHERWISE NORMAL ECG - SINUS TACHYCARDIA : Confirmed by: Rivas Padilla MD 20-Aug-2018 20:58:49
== END 2018-08-20 20:23 | disposition left against medical advice (07) ==
LOC: ER 15:29
DX: E86.0 Dehydration (principal); R16.0 Hepatomegaly, not elsewhere classified; I81 Portal vein thrombosis; A41.9 Sepsis, unspecified organism; R10.9 Unspecified abdominal pain; R53.1 Weakness; R42 Dizziness and giddiness; Z79.01 Long term (current) use of anticoagulants; Z87.891 Personal history of nicotine dependence
CPT/HCPCS: 93005; 99291; 96372; 96361; 96374; 96375; 86900; 86901; 36415; 87040; 87086; 86850; 83690; 85025; 85610; 85730; 87077; 80053; 81001; 84484; 83605; 74177; 93010; J3230; J1652; J2405; J7120; J0692

== ENCOUNTER 2018-08-24 13:58 | Inpatient (IN) | payer SELFPAY ==
--- NOTE | 2018-08-24 14:36 | ER Document Report ---
ED General - General Stated Complaint: WEAKNESS Time Seen by Provider: 08/24/18 14:21 Mode of Arrival: Medic TRAVEL OUTSIDE OF THE [place] IN LAST 30 DAYS: No - HPI Patient complains to provider of: weakness Onset: Other - Is a 57-year-old man with metastatic colon cancer is currently on home hospice, his hospice nurse saw him today and was concerned that his blood pressure seems somewhat low and that he has not been eating or drinking well and thought that he might benefit from IV fluids and so called for EMS. - Related Data Allergies/Adverse Reactions: No Known Allergies Allergy (Verified 07/31/18 12:30) Past Medical History - General Information source: Relative, Legal Guardian, Friend, Dr. Hinkle, [facility] Records - Social History Smoking Status: Former Smoker Smoking Education Provided: No Family History: Reviewed & Not Pertinent - Past Medical History Cardiac Medical History: Reports: Hx Hypertension Renal/ Medical History: Denies: Hx Peritoneal Dialysis Review of Systems - Review of Systems -: Yes All other systems reviewed and negative Physical Exam - Vital signs Vitals: Temp Resp BP Pulse Ox 97.5 F 11 L 86/70 L 100 08/24/18 14:12 08/24/18 14:12 08/24/18 14:12 08/24/18 14:12 - General General appearance: Lethargic In distress: Mild - HEENT Head: Normocephalic Eyes: Other - Sunken Extraocular movements intact: Yes - Respiratory Respiratory status: No respiratory distress Chest status: Nontender Breath sounds: Normal Chest palpation: Normal - Cardiovascular Rhythm: Regular Heart sounds: Normal auscultation Murmur: No - Abdominal Inspection: Other - Wasted, thin Distension: No distension Tenderness: Nontender - Back Back: Normal, Nontender - Extremities General upper extremity: Other - Incredibly frail extremities General lower extremity: Other - Incredibly frail extremities - Neurological Neuro grossly intact: No Cognition: Inattentive Orientation: Disoriented to person, Disoriented to events Gianni Coma Scale Eye Opening: To Voice Gianni Coma Scale Verbal: Incomprehensible [place] Coma Scale Motor: Obeys Commands Gianni Coma Scale Total: 11 - Psychological Associated symptoms: Other - Diminished insight Course - Re-evaluation Re-evalutation: 08/24/18 22:41 Here is an incredibly frail 57-year-old man who is currently on hospice at home for metastatic colon cancer for which she has been evaluated and offered some palliative treatment however he is deemed too weak to potentially undergo such. I did speak to home hospice nurse Pat about her decision to refer him to the emergency room, she notes that she will come to take care of the family and discuss the treatment options. I did speak to he, his Sister Janis who is his surrogate medical decision- maker as well as their other sister in the room. Based on previous documentation from 2 days prior it appears that the patient had discussed potentially deciding to stop pursuing treatment however it is unclear as he has been poorly cognizant of late. He is unable to answer questions at this point as a result of general somnolence. My current plan is to discuss this case when home hospice nurse, will obtain chemistry and a CBC as well. Pat is at the bedside, spoke to Janis patient and Pat about treatment and options related to his care. It is noteworthy that he has what appears to be profound dehydration based on his labs, he is received 1 L of fluids thus far his blood pressure remains marginal. 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 He is currently not on anticoagulation. His sister has revoked his hospice care as she would like him to receive treatment. He is moaning in some pain on the bed, will give him doses of morphine for analgesia. He also is noted as being incredibly frail being unable to tolerate p.o. It is unclear at this time what the treatment goals are of his family as well as himself as he is not able to state such. Because of his poor cognition I have discussed his case with the on-call hospitalist Dr. Prasanth Vallejo who states that his oncologist should have some input on his care at this point. Spoke to Dr. Jagdish mayberry about this patient's care he is happy to help care for this patient says that he is willing to see him in clinic or in the hospital as needed but is not particularly familiar with this patient's care as such she is uncertain how to best care for him. He notes that this is a terrible situation and that we are kind of "stuck". I believe that this patient would benefit from IV fluids in the inpatient setting but also a serious consideration of a transition to palliative and hospice care at home or in the inpatient hospice setting as he may be transitioning to his end of life. It is unclear whether or not he wants to be resuscitated in the event that he has a life ending event. And repeat discussion with Dr. Prasanth Vallejo he is agreed to evaluate this patient for admission to the hospital. - Vital Signs Vital signs: Temp Pulse Resp BP Pulse Ox 97.5 F 14 96/73 L 99 08/24/18 14:12 08/24/18 21:01 08/24/18 21:01 08/24/18 21:01 - Laboratory Result Diagrams: 08/24/18 15:34 08/24/18 15:34 Laboratory results interpreted by me: 08/24/18 08/24/18 08/24/18 15:34 15:34 15:34 WBC 26.1 H RBC 3.91 L Hgb 11.0 L Hct 33.0 L Seg Neuts % (Manual) 90 H Lymphocytes % (Manual) 4 L Monocytes % (Manual) 2 L Abs Neuts (Manual) 24.5 H Potassium 5.2 H BUN 72 H Glucose 65 L Magnesium 2.6 H Total Bilirubin 1.4 H Direct Bilirubin 0.9 H AST 129 H ALT 89 H Alkaline Phosphatase 181 H Total Protein 5.9 L Albumin 2.7 L Lipase 17.1 L Discharge - Discharge Clinical Impression: Dehydration, Mesenteric venous thrombosis Condition: Stable Disposition: ADMITTED INPATIENT Admitting Provider: Rubina vallejo Unit Admitted: Medical Floor Referrals: ELIECER ESTRADA MD [Primary Care Provider] - Follow up as needed
[2018-08-24] MEDS ORDERED: DEXTROSE 5%-1/2 NORMAL SALINE 500 ML IV ONE (15:29)
[2018-08-24 15:52] LABS: MEAN CORPUSCULAR HEMOGLOBIN 28.1 pg (27.0-33.4); MEAN CORPUSCULAR HGB CONC 33.3 g/dL (32.0-36.0); MEAN CORPUSCULAR VOLUME 84 fl (80-97); PLATELET COUNT 235 10^3/uL (150-450); RED BLOOD COUNT 3.91 10^6/uL (4.35-5.55); RED CELL DISTRIBUTION WIDTH 13.8 % (11.5-14.0); WHITE BLOOD COUNT 26.1 10^3/uL (4.0-10.5)
[2018-08-24 16:07] LABS: ALANINE AMINOTRANSFERASE 89 U/L (21-72); ALBUMIN 2.7 g/dL (3.5-5.0); ALKALINE PHOSPHATASE 181 U/L (38-126); ANION GAP 12 (5-19); ASPARTATE AMINO TRANSFERASE 129 U/L (17-59); BILIRUBIN,DIRECT 0.9 mg/dL (0.0-0.4); BILIRUBIN,TOTAL 1.4 mg/dL (0.2-1.3); BLOOD UREA NITROGEN 72 mg/dL (7-20); CALCIUM 9.8 mg/dL (8.4-10.2); CARBON DIOXIDE 25 mmol/L (22-30); CHLORIDE 104 mmol/L (98-107); GLUCOSE 65 mg/dL (75-110); LIPASE 17.1 U/L (23-300); POTASSIUM 5.2 mmol/L (3.6-5.0); SODIUM 141.3 mmol/L (137-145); TOTAL PROTEIN 5.9 g/dL (6.3-8.2)
[2018-08-24 16:15] LABS: ABSOLUTE MONOCYTES # (MANUAL) 0.5 10^3/uL (0.1-1.4); ABSOLUTE NEUTROPHILS# (MANUAL) 24.5 10^3/uL (1.7-8.2); BAND NEUTROPHILS % (MANUAL) 4 % (3-5); BASOPHILS % (MANUAL) 0 % (0-2); EOSINOPHILS % (MANUAL) 0 % (0-6); LYMPHOCYTES % (MANUAL) 4 % (13-45); MONOCYTES % (MANUAL) 2 % (3-13); SEGMENTED NEUTROPHILS % (MAN) 90 % (42-78); TOTAL CELLS COUNTED 100
[2018-08-24 16:17] LABS: PLATELET COMMENT ADEQUATE; POIKILOCYTOSIS 1+; POLYCHROMASIA SLIGHT; TEAR DROP CELLS 1+
[2018-08-24] MEDS ORDERED: MORPHINE SULFATE 10 MG/ML INJ IV ONE (17:03)
--- NOTE | 2018-08-24 19:07 | RADIOLOGY REPORT (SQ) ---
EXAM DESCRIPTION: CHEST SINGLE VIEW COMPLETED DATE/TIME: 08/24/2018 6:55 pm REASON FOR STUDY: concern for pneumonia COMPARISON: AP chest 07/31/2018 EXAM PARAMETERS: NUMBER OF VIEWS: One view. TECHNIQUE: Single frontal radiographic view of the chest acquired. RADIATION DOSE: NA LIMITATIONS: None. FINDINGS: LUNGS AND PLEURA: No opacities, masses or pneumothorax. No pleural effusion. MEDIASTINUM AND HILAR STRUCTURES: No masses. Contour normal. HEART AND VASCULAR STRUCTURES: Heart normal in size. Normal vasculature. BONES: No acute findings. HARDWARE: None in the chest. OTHER: No other significant finding. IMPRESSION: NO ACUTE RADIOGRAPHIC FINDING IN THE CHEST. TECHNICAL DOCUMENTATION: JOB ID: [id number] [employer]- All Rights Reserved Reading location - IP/workstation name: [email or web address]
[2018-08-24] MEDS ORDERED: NORMAL SALINE 1000 ML 1,000 ML IV ONE (19:08)
[2018-08-24] MEDS: NORMAL SALINE 1000 ML 1,000 ML IV PRN ×2 (19:58→19:59)
[2018-08-24] MEDS ORDERED: ACETAMINOPHEN 325 MG TABLET PO PRN (21:26)
[2018-08-24] MEDS ORDERED: IPRATROPIUM/ALBUTEROL 0.5-2.5 MG/3 ML AMPUL NEB PRN (21:26)
[2018-08-24] MEDS ORDERED: MAG HYDROX/AL HYDROX/SIMETH SUSP 30 ML UDCUP PO PRN (21:26)
[2018-08-24] MEDS ORDERED: LORAZEPAM 0.5 MG TABLET PO PRN (21:32)
[2018-08-24] MEDS ORDERED: HALOPERIDOL LACTATE ORAL SOLN 10 MG/5 ML UDCUP PO PRN (21:32)
[2018-08-24] MEDS: DEXTROSE 5%-1/2 NORMAL SALINE 1,000 ML IV PRN (22:10)
[2018-08-25] MEDS: MORPHINE SULFATE 10 MG/ML INJ IV PRN ×4 (03:11→18:01)
[2018-08-25] MEDS: DEXTROSE 5%-1/2 NORMAL SALINE 1,000 ML IV PRN (03:14)
[2018-08-25] MEDS ORDERED: HEPARIN SOD (PORCINE) 5,000 UNIT/ML 1 ML SYRINGE SUBCUT SCH (06:00)
[2018-08-25] MEDS ORDERED: DEXTROSE 40% GEL 15 GM TUBE PO PRN ×2 (06:19)
[2018-08-25] MEDS ORDERED: GLUCAGON,HUMAN RECOMB 1 MG INJ IM PRN (06:19)
[2018-08-25] MEDS ORDERED: DEXTROSE 50%-WATER 25 GM/50 ML DISP.SYRIN IV PRN ×2 (06:19)
[2018-08-25] MEDS ORDERED: DEXTROSE 5%-1/2 NORMAL SALINE 1,000 ML IV PRN (06:20)
[2018-08-25] MEDS ORDERED: LACTULOSE SYRUP 20 GM/30 ML UDCUP PO ONE (06:25)
--- NOTE | 2018-08-25 06:30 | PDOC H&P ---
History of Present Illness Admission Date/PCP: 08/24/18 21:29 ELIECER ESTRADA MD Patient complains of: Altered mental status History of Present Illness: ELIER DE LA ROSA is a 57 year old male with a past medical history of metastatic colon cancer with widespread metastasis, hepatic vein thrombosis currently receiving hospice services including morphine and Ativan. Patient resides with sisters who bring him to the emergency room for evaluation of altered mental status. He is found to have leukocytosis without fever, hypotension, encephalopathy, hypo-glycemia and is referred to the hospitalist for admission. Sisters feel unable to care for him in an independent setting but verify his CODE STATUS is DNR and verify his wishes for hospice with comfort measures only. He is referred to the hospitalist for respite Past Medical History Cardiac Medical History: Reports: Hypertension Malignancy Medical History: Reports: Colorectal Cancer Past Surgical History Past Surgical History: Reports: None Social History Information Source: Patient Smoking Status: Former Smoker Drugs: None - Advance Directive Resuscitation Status: Comfort Measures Only Family History Family History: None - Unobtainable Parental Family History Reviewed: No Children Family History Reviewed: No Sibling(s) Family History Reviewed.: No Medication/Allergy Home Medications: Abhr Supp 1 supp SC Q4HP PRN 08/24/18 Acetaminophen [Tylenol 650 mg Supp] 650 mg SC Q4HP PRN 08/24/18 Furosemide [Lasix 40 mg Tablet] 40 mg PO Q12HP PRN 08/24/18 Haloperidol Lactate [Haldol Oral Soln 10 Mg/5 Ml Udcup] 1 mg PO Q4HP PRN Hyoscyamine Sulfate [Anaspaz] 0.125 mg SL Q4HP PRN 08/24/18 Lorazepam [Ativan 0.5 mg Tablet] 0.5 mg .ROUTE Q4HP PRN MDD UNDER TONGUE OR BY RECTUM 08/24/18 Morphine Sulfate [Morphine Oral Soln 10 Mg/5 Ml Udcup] 10 mg PO Q1HP PRN Prochlorperazine Maleate [Compazine 25 Mg Supp.Rect] 25 mg SC Q12HP PRN 18 Sennosides/Docusate Sodium [Senexon-S Tablet] 1 each PO DAILYP PRN MDD 2 TABS Allergies/Adverse Reactions: No Known Allergies Allergy (Verified 07/31/18 12:30) Review of Systems ROS unobtainable: Due to mental status Physical Exam Vital Signs: Temp Pulse Resp BP Pulse Ox 97.3 F 99 22 H 89/62 L 100 08/25/18 03:45 08/25/18 05:14 08/25/18 03:45 08/25/18 03:45 08/25/18 03:45 Intake & Output 08/23/18 08/24/18 08/25/18 11:59 11:59 11:59 Intake Total 1000 Balance 1000 Weight 55.2 kg General appearance: PRESENT: disheveled, thin, other - Cachexia with temporal wasting Head exam: PRESENT: atraumatic, normocephalic Eye exam: PRESENT: conjunctiva pink, EOMI, PERRLA. ABSENT: scleral icterus Ear exam: PRESENT: normal external ear exam Mouth exam: PRESENT: moist, tongue midline Neck exam: ABSENT: carotid bruit, JVD, lymphadenopathy, thyromegaly Respiratory exam: PRESENT: clear to auscultation amisha. ABSENT: rales, rhonchi, wheezes Cardiovascular exam: PRESENT: RRR. ABSENT: diastolic murmur, rubs, systolic murmur Pulses: PRESENT: normal dorsalis pedis pul Vascular exam: PRESENT: normal capillary refill GI/Abdominal exam: PRESENT: ascites, distended. ABSENT: tenderness Rectal exam: PRESENT: deferred Extremities exam: PRESENT: full ROM. ABSENT: calf tenderness, clubbing, pedal edema Neurological exam: PRESENT: altered Psychiatric exam: PRESENT: unusual affect. ABSENT: homicidal ideation, suicidal ideation Skin exam: PRESENT: dry, intact, warm. ABSENT: cyanosis, rash Results Impressions: Chest X-Ray 08/24/18 18:22 IMPRESSION: NO ACUTE RADIOGRAPHIC FINDING IN THE CHEST. Assessment & Plan - Diagnosis (1) Liver mass Is this a current diagnosis for this admission?: Yes Plan: Colorectal cancer with widespread metastases. CODE STATUS verified is DNR, comfort measures only, follow-up hospice consult for inpatient placement. (2) Hypoglycemia Is this a current diagnosis for this admission?: Yes Plan: D5 half-normal saline, Accu-Cheks every 6 hours (3) Mesenteric venous thrombosis Is this a current diagnosis for this admission?: Yes Plan: Supportive care only - Time Time Spent: 30 to 50 Minutes - Inpatient Certification Medical Necessity: Need Close Monitoring Due to Risk of Patient Decompensation
[2018-08-25 07:30] LABS: HEMATOCRIT 34.8 % (37.9-51.0); HEMOGLOBIN 11.5 g/dL (13.5-17.0); MEAN CORPUSCULAR HEMOGLOBIN 28.1 pg (27.0-33.4); MEAN CORPUSCULAR VOLUME 85 fl (80-97); PLATELET COUNT 269 10^3/uL (150-450); RED BLOOD COUNT 4.08 10^6/uL (4.35-5.55); RED CELL DISTRIBUTION WIDTH 14.1 % (11.5-14.0); WHITE BLOOD COUNT 9.4 10^3/uL (4.0-10.5)
[2018-08-25 07:50] LABS: ALANINE AMINOTRANSFERASE 121 U/L (21-72); ALBUMIN 2.1 g/dL (3.5-5.0); ALKALINE PHOSPHATASE 140 U/L (38-126); ANION GAP 15 (5-19); ASPARTATE AMINO TRANSFERASE 209 U/L (17-59); BILIRUBIN,DIRECT 0.7 mg/dL (0.0-0.4); BLOOD UREA NITROGEN 70 mg/dL (7-20); CALCIUM 8.6 mg/dL (8.4-10.2); CARBON DIOXIDE 17 mmol/L (22-30); CHLORIDE 109 mmol/L (98-107); GLUCOSE 105 mg/dL (75-110); POTASSIUM 4.6 mmol/L (3.6-5.0); SODIUM 141.4 mmol/L (137-145); TOTAL PROTEIN 4.6 g/dL (6.3-8.2)
[2018-08-25 07:59] LABS: ABSOLUTE LYMPHOCYTES# (MANUAL) 1.7 10^3/uL (0.5-4.7); ABSOLUTE MONOCYTES # (MANUAL) 0.3 10^3/uL (0.1-1.4); BASOPHILS % (MANUAL) 0 % (0-2); EOSINOPHILS % (MANUAL) 1 % (0-6); LYMPHOCYTES % (MANUAL) 17 % (13-45); METAMYELOCYTES % (MANUAL) 2 % (0); MONOCYTES % (MANUAL) 3 % (3-13); SEGMENTED NEUTROPHILS % (MAN) 56 % (42-78); TOTAL CELLS COUNTED 100
[2018-08-25 08:01] LABS: ABSOLUTE NEUTROPHILS# (MANUAL) 7.3 10^3/uL (1.7-8.2)
[2018-08-25 08:02] LABS: ACANTHOCYTES SLIGHT; BURR CELLS SLIGHT; OVALOCYTES 1+; PLATELET CLUMPS PRESENT; POIKILOCYTOSIS 2+; SCHISTOCYTES 1+; TOXIC GRANULATION 2+; TOXIC VACUOLATION PRESENT
--- NOTE | 2018-08-25 08:49 | PDOC CONSULTATION ---
Consultation Consult Date: 08/25/18 Attending physician:: ELIER FAJARDO Consult reason:: Confusion, weakness, stage IV colon cancer History of Present Illness Admission Date/PCP: 08/24/18 21:29 ELIECER ESTRADA MD Patient complains of: Confusion, weakness History of Present Illness: ELIER DE LA ROSA is a 57 year old male with recently diagnosed stage IV colon cancer , he saw my partner Dr. Goff in our office 3 days ago, at that time he was very weak, cachectic, but adamant that he was not interested in pursuing any diagnostic testing, or treatment because he felt like he was not strong enough, at that time he agreed to a DNR as well as hospice. He was initiated [facility] hosp[facility] with [facility]. Unfortunately, however, he did not involve his family in any of these decisions and did not discuss his case at all with family, so he instructed Dr. Goff NOT to talk to family, so although they were there in the office, they were not present for any of this hospice/CODE STATUS discussions. At home, he predictably became worse, and ultimately family decided to bring him back into the hospital, revoking hospice. Currently patient is very confused, does open eyes to commands, is breathing appropriately and does not seem in distress, but is not able to make any decisions on his own. Past Medical History Cardiac Medical History: Reports: Hypertension Malignancy Medical History: Reports: Colorectal Cancer Past Surgical History Past Surgical History: Reports: None Social History Information Source: Dr. Hinkle, [facility] Records Smoking Status: Former Smoker Drugs: None - Advance Directive Resuscitation Status: Do Not Resuscitate Family History Family History: None - Unobtainable Parental Family History Reviewed: Yes Children Family History Reviewed: Yes Sibling(s) Family History Reviewed.: Yes Medication/Allergy Home Medications: Abhr Supp [address] Q4HP PRN 08/24/18 Acetaminophen [Tylenol 650 mg Supp] [address] Q4HP PRN 08/24/18 Furosemide [Lasix 40 mg Tablet] 40 mg PO Q12HP PRN 08/24/18 Haloperidol Lactate [Haldol Oral Soln 10 Mg/5 Ml Udcup] 1 mg PO Q4HP PRN Hyoscyamine Sulfate [Anaspaz] 0.125 mg SL Q4HP PRN 08/24/18 Lorazepam [Ativan 0.5 mg Tablet] 0.5 mg .ROUTE Q4HP PRN MDD UNDER TONGUE OR BY RECTUM 08/24/18 Morphine Sulfate [Morphine Oral Soln 10 Mg/5 Ml Udcup] 10 mg PO Q1HP PRN Prochlorperazine Maleate [Compazine 25 Mg Supp.Rect] [address] Q12HP PRN Sennosides/Docusate Sodium [Senexon-S Tablet] 1 each PO DAILYP PRN MDD 2 TABS Allergies/Adverse Reactions: No Known Allergies Allergy (Verified 07/31/18 12:30) Review of Systems ROS unobtainable: Due to mental status Physical Exam Vital Signs: Temp Pulse Resp BP Pulse Ox 97.3 F 97 22 H 89/62 L 100 08/25/18 03:45 08/25/18 07:00 08/25/18 03:45 08/25/18 03:45 08/25/18 03:45 Intake & Output 08/24/18 08/25/18 08/26/18 06:59 06:59 06:59 Intake Total 1999 Balance 1999 Weight 55.2 kg General appearance: PRESENT: no acute distress, disheveled, thin Mouth exam: PRESENT: dry mucosa Respiratory exam: PRESENT: clear to auscultation amisha. ABSENT: rales, rhonchi, wheezes Cardiovascular exam: PRESENT: RRR. ABSENT: diastolic murmur, rubs, systolic murmur GI/Abdominal exam: PRESENT: normal bowel sounds, soft. ABSENT: distended, guarding, mass, organolmegaly, rebound, tenderness Rectal exam: PRESENT: deferred Neurological exam: PRESENT: altered Psychiatric exam: PRESENT: agitated Results Laboratory Results: 08/25/18 07:15 08/25/18 07:15 08/25/18 08/25/18 07:15 07:15 WBC 9.4 RBC 4.08 L Hgb 11.5 L Hct 34.8 L MCV 85 MCH 28.1 MCHC 33.0 RDW 14.1 H Plt Count 269 Seg Neutrophils % Not Reportable Lymphocytes % Not Reportable Monocytes % Not Reportable Eosinophils % Not Reportable Basophils % Not Reportable Absolute Neutrophils Not Reportable Absolute Lymphocytes Not Reportable Absolute Monocytes Not Reportable Absolute Eosinophils Not Reportable Absolute Basophils Not Reportable Sodium 141.4 Potassium 4.6 Chloride 109 H Carbon Dioxide 17 L Anion Gap 15 BUN 70 H Creatinine 1.42 H Est GFR ( Amer) > 60 Est GFR (Non-Af Amer) 52 L Glucose 105 Calcium 8.6 Total Bilirubin 1.0 AST 209 H ALT 121 H Alkaline Phosphatase 140 H Total Protein 4.6 L Albumin 2.1 L Impressions: Chest X-Ray 08/24/18 18:22 IMPRESSION: NO ACUTE RADIOGRAPHIC FINDING IN THE CHEST. Assessment & Plan - Diagnosis (1) Malignant neoplasm of sigmoid colon Is this a current diagnosis for this admission?: Yes Plan: Stage IV colon cancer, patient is certainly not a candidate for any diagnostics or treatment at this point, I discussed his case with his healthcare POA, Janis Christie, she was very distraught about this information, I told her that he was actively dying, recommended that we continue comfort care measures ultimately at home, unfortunately because the patient himself did not really speak at all with his family about his current scenario, they are predictably distraught and confused. I will meet the family in my office at 11 AM this morning, hopefully I will be able to convince them to go back to hospice with [facility]. - Time Time Spent: Greater than 70 Minutes - Inpatient Certification Based on my medical assessment, after consideration of the patient's comorbidities, presenting symptoms, or acuity I expect that the services needed warrant INPATIENT care.: Yes I certify that my determination is in accordance with my understanding of Medicare's requirements for reasonable and necessary INPATIENT services [42 CFR 412.3e].: Yes Medical Necessity: Need for Pain Control, Risk of Complication if Not Cared For in Hospital
[2018-08-25 09:54] LABS: BAND NEUTROPHILS % (MANUAL) 20 % (3-5)
[2018-08-25] MEDS ORDERED: DOCUSATE SODIUM 100 MG/10 ML UDC PO SCH (10:00)
[2018-08-25 10:47] VITALS: BP 88/50
[2018-08-25 11:41] LABS: PATH REVIEW PATHOLOGIST REVIEWED
[2018-08-25] MEDS ORDERED: LORAZEPAM INJ 2 MG/1 ML VIAL ONE (14:01)
[2018-08-25] MEDS ORDERED: LORAZEPAM INJ 2 MG/1 ML VIAL IV PRN (14:58)
--- NOTE | 2018-08-25 16:34 | PDOC PROGRESS REPORT ---
Subjective Progress Note for:: 08/25/18 - seen on rounds this afternoon Subjective:: patient is confused and non verbal- agitated- spoke with nephew at bedside. he' s aware that patient is Hospice now Reason For Visit: HYPOTENSION AMS COLON CA W METS, PORTAL VEIN Physical Exam Vital Signs: Temp Pulse Resp BP Pulse Ox 96.0 F L 50 L 24 H 88/50 L 100 08/25/18 08:00 08/25/18 08:00 08/25/18 08:00 08/25/18 08:00 08/25/18 08:00 Intake & Output 08/24/18 08/25/18 08/26/18 06:59 06:59 06:59 Intake Total 1999 Balance 1999 Weight 121 lb 11.123 oz General appearance: PRESENT: mild distress, other - cachectic, confused Head exam: PRESENT: atraumatic, normocephalic Eye exam: ABSENT: conjunctival injection Ear exam: PRESENT: normal external ear exam Respiratory exam: PRESENT: clear to auscultation amisha, symmetrical Cardiovascular exam: PRESENT: +S1, +S2 GI/Abdominal exam: PRESENT: normal bowel sounds, soft Neurological exam: PRESENT: altered - doesnt respond to verbal commands Skin exam: PRESENT: dry, warm Results Laboratory Results: 08/25/18 07:15 08/25/18 07:15 08/25/18 08/25/18 07:15 07:15 WBC 9.4 RBC 4.08 L Hgb 11.5 L Hct 34.8 L MCV 85 MCH 28.1 MCHC 33.0 RDW 14.1 H Plt Count 269 Seg Neutrophils % Not Reportable Lymphocytes % Not Reportable Monocytes % Not Reportable Eosinophils % Not Reportable Basophils % Not Reportable Absolute Neutrophils Not Reportable Absolute Lymphocytes Not Reportable Absolute Monocytes Not Reportable Absolute Eosinophils Not Reportable Absolute Basophils Not Reportable Sodium 141.4 Potassium 4.6 Chloride 109 H Carbon Dioxide 17 L Anion Gap 15 BUN 70 H Creatinine 1.42 H Est GFR ( Amer) > 60 Est GFR (Non-Af Amer) 52 L Glucose 105 Calcium 8.6 Total Bilirubin 1.0 AST 209 H ALT 121 H Alkaline Phosphatase 140 H Total Protein 4.6 L Albumin 2.1 L Impressions: Chest X-Ray 08/24/18 18:22 IMPRESSION: NO ACUTE RADIOGRAPHIC FINDING IN THE CHEST. Assessment & Plan - Diagnosis (1) Hospice care patient Is this a current diagnosis for this admission?: Yes (2) Malignant neoplasm of sigmoid colon Is this a current diagnosis for this admission?: Yes (3) Liver mass Is this a current diagnosis for this admission?: Yes - Plan Summary Plan Summary: patient admitted for comfort measures only spoke with Dr Baez this afternoon- he has held a family meeting- family is now on board with hospice decision. i appreciate Dr baez for his consultation and help with this unfortunately patient per note- patient has stage IV colon Ca- was on hospice at home- but family was no aware of this- they decided to bring him to hospital due to declining health i have increased his ativan for agitation. c/w morphine IV
--- NOTE | 2018-08-26 19:06 | PDOC DISCHARGE SUMMARY ---
General - Admit/Disc Date/PCP Admission Date/Primary Care Provider: 08/24/18 21:29 ELIECER ESTRADA MD Discharge Date: 08/25/18 - Discharge Diagnosis (1) Hospice care patient Is this a current diagnosis for this admission?: Yes (2) Malignant neoplasm of sigmoid colon Is this a current diagnosis for this admission?: Yes (3) Liver mass Is this a current diagnosis for this admission?: Yes - Additional Information Resuscitation Status: Do Not Resuscitate Home Medications: Abhr Supp 1 supp HI Q4HP PRN 08/24/18 Acetaminophen [Tylenol 650 mg Supp] 650 mg HI Q4HP PRN 08/24/18 Furosemide [Lasix 40 mg Tablet] 40 mg PO Q12HP PRN 08/24/18 Haloperidol Lactate [Haldol Oral Soln 10 Mg/5 Ml Udcup] 1 mg PO Q4HP PRN Hyoscyamine Sulfate [Anaspaz] 0.125 mg SL Q4HP PRN 08/24/18 Lorazepam [Ativan 0.5 mg Tablet] 0.5 mg .ROUTE Q4HP PRN MDD UNDER TONGUE OR BY RECTUM 08/24/18 Morphine Sulfate [Morphine Oral Soln 10 Mg/5 Ml Udcup] 10 mg PO Q1HP PRN Prochlorperazine Maleate [Compazine 25 Mg Supp.Rect] 25 mg HI Q12HP PRN Sennosides/Docusate Sodium [Senexon-S Tablet] 1 each PO DAILYP PRN MDD 2 TABS History of Present Illness History of Present Illness: ELIER DE LA ROSA is a 57 year old male was admitted for comfort measures Hospital Course Hospital Course: patient was placed in the hospital for comfort measures. patient had not told family at home that he was comfort measures so family brought him to the hospital. Dr baez spoke with family and they agreed to continue on comfort measures. patient on the night of 08/25/18 Physical Exam Vital Signs: Temp Pulse Resp BP Pulse Ox 96.0 F L 50 L 24 H 88/50 L 100 08/25/18 08:00 08/25/18 08:00 08/25/18 08:00 08/25/18 08:00 08/25/18 08:00 Intake & Output 08/25/18 08/26/18 08/27/18 06:59 06:59 06:59 Intake Total 1999 0 Balance 1999 0 Weight 121 lb 11.123 oz Results Laboratory Results: 08/25/18 07:15 08/25/18 07:15 Impressions: Chest X-Ray 08/24/18 18:22 IMPRESSION: NO ACUTE RADIOGRAPHIC FINDING IN THE CHEST. Qualifiers - * PATIENT BEING DISCHARGED WITH ANY OF THE FOLLOWING DIAGNOSIS: No Plan Time Spent: Less than 30 Minutes
== END 2018-08-25 22:00 | disposition left against medical advice (07) | DRG 374 ==
LOC: ER 13:58 → OBSVTOIN 21:29 → INTOOBSV 21:29 → EH 21:29 → 4W 08-25 03:39
PROVIDERS: ADMIT Internal Medicine; ATTEND Internal Medicine
DX: C18.9 Malignant neoplasm of colon, unspecified (principal); Z51.5 Encounter for palliative care; Z66 Do not resuscitate; I81 Portal vein thrombosis; I82.0 Budd-Chiari syndrome; C79.9 Secondary malignant neoplasm of unspecified site; R64 Cachexia; Z68.1 Body mass index [BMI] 19.9 or less, adult; I10 Essential (primary) hypertension; E86.0 Dehydration; R16.0 Hepatomegaly, not elsewhere classified; E16.2 Hypoglycemia, unspecified; R41.82 Altered mental status, unspecified; R53.1 Weakness
CPT/HCPCS: 36415; 71045; 80053; 82962; 83690; 83735; 85025; 96361; 96374; 99285; J2060; J2270; J7030; J7070